=== PATIENT | male | born 1970 ===

== ENCOUNTER 2017-04-19 15:56 | Emergency (ER) | payer OTHER ==
[2017-04-19 16:26] VITALS: BP 127/84; PULSE 89; RESP 18; TEMP 98.5; O2SAT 97
--- NOTE | 2017-04-19 16:55 | C.PDOC ---
History Of Present Illness 47 y/o male with Hx of knee problems presents to ED with complaints of right knee pain. Patient states he twisted his knee today while walking. Patient goes to physical therapy once weekly and states he took one dose of Meloxicam with temporary relief. Patient has a MRI report from 08/04/16 with him that shows tear of medial meniscus and degenerative osteoarthritic changes of knee. No other complaints at this time. Time Seen by Provider: 04/19/17 16:54 Chief Complaint (Nursing): Lower Extremity Problem/Injury History Per: Patient History/Exam Limitations: no limitations Onset/Duration Of Symptoms: Days Current Symptoms Are (Timing): Still Present Past Medical History Reviewed: Historical Data, Nursing Documentation, Vital Signs Vital Signs: Last Vital Signs Temp 98.5 F 04/19/17 16:25 Pulse 89 04/19/17 16:25 Resp 18 04/19/17 16:25 BP 127/84 04/19/17 16:25 Pulse Ox 97 04/19/17 19:07 Family History: States: No Known Family Hx - Social History Hx Tobacco Use: No Hx Alcohol Use: Yes Hx Substance Use: No - Immunization History Hx Tetanus Toxoid Vaccination: No Hx Influenza Vaccination: No Hx Pneumococcal Vaccination: No Review Of Systems Constitutional: Negative for: Fever, Chills Musculoskeletal: Positive for: Other (Knee pain) Skin: Negative for: Rash Neurological: Negative for: Weakness, Numbness Physical Exam - Physical Exam Appears: Non-toxic, No Acute Distress Skin: Normal Color, Warm Head: Atraumatic, Normacephalic Eye(s): bilateral: Normal Inspection Neck: Normal ROM Chest: Symmetrical Extremity: Tenderness (Mild tenderness to medial aspect of right knee), No Swelling, Other (Pain with flexion of right knee) Pulses: Left Dorsalis Pedis: Normal, Right Dorsalis Pedis: Normal Neurological/Psych: Oriented x3, Normal Speech, Normal Motor, Normal Sensation ED Course And Treatment O2 Sat by Pulse Oximetry: 97 (RA) Pulse Ox Interpretation: Normal Medical Decision Making Medical Decision Making: Plan: * Tramadol given for pain Progress: Patient has his own knee brace that was reapplied. recommend analgesics and to follow up with orthopedic Disposition Counseled Patient/Family Regarding: Need For Followup, Rx Given - Disposition Referrals: [facility] [Outside] Disposition: HOME/ ROUTINE Disposition Time: 17:23 Condition: STABLE Additional Instructions: Please follow up in ortho clinic next week for further evaluation continue taking your usual pain medications and wearing knee brace Prescriptions: traMADol [Ultram] 50 mg PO Q8 #14 tab Instructions: Knee Pain (ED) Print Language: TOGOLESE - POA Present On Arrival: None - Clinical Impression Clinical Impression: Knee pain, right - PA / OFFC SPEC / Resident Statement MD/DO has reviewed & agrees with the documentation as recorded. - Scribe Statement The provider has reviewed the documentation as recorded by the Marjibkeely Sanchez All medical record entries made by the Steve were at my direction and personally dictated by me. I have reviewed the chart and agree that the record accurately reflects my personal performance of the history, physical exam, medical decision making, and the department course for this patient. I have also personally directed, reviewed, and agree with the discharge instructions and disposition.
== END 2017-04-19 17:35 | disposition home or self-care (01) ==
LOC: C.ER 15:56
DX: M25.561 Pain in right knee (principal)